=== PATIENT | male | born 1955 | race Caucasian/White ===

== ENCOUNTER 2017-11-07 12:50 | Emergency (ER) | payer OTHER ==
[~2017-11-07] VITALS: Ht 185.4 cm; Wt 112.6 kg
[~2017-11-07 12:50] MED LIST: ATENOLOL100 MG PO; CLONAZEPAM0.5 MG PO; DICLOFENAC SODI75 MG PO; FLEXERIL10 MG PO; FLUOXETINE HCL10 MG PO; FLUOXETINE HCL20 MG PO; LANSOPRAZOLE30 MG PO; LEVOTHYROXINE150 MCG PO; MEDROL DOSEPAK4 MG PO; PERCOCET 5/31 TABLET PO; VALSARTAN-HCTZ1 EAC1 PO; VITAMIN D34000 UNIT PO; VOLTAREN75 MG PO
[2017-11-07 14:45] LABS: HEMATOCRIT 44.2 % (38.0-50.0); MCH 29.6 PG (29.0-34.0); MCHC 36.2 G/DL (30.0-36.0); MCV 81.9 FL (86-99); MEAN PLAT.VOLUME 9.7 uM^3 (9.0-12.4); PLATELET COUNT 189 K/uL (156-360); RBC DIS.WIDTH-CV 12.8 % (11.8-14.6); WHITE BLOOD COUNT 7.4 K/uL (4.1-10.2)
[2017-11-07 15:06] LABS: TROP-I INTERPRETATION NEGATIVE; TROPONIN-I < 0.01 ng/mL (0.0-0.30)
[2017-11-07 15:15] LABS: ANION GAP 9 MEQ/L (2-14); CHLORIDE 107 MEQ/L (99-109); POTASSIUM 3.7 MEQ/L (3.7-5.4); SAMPLE HEMOLYSIS CHECK 0; SAMPLE ICTERIC CHECK 0; SAMPLE LIPEMIA CHECK 0; SODIUM 139 MEQ/L (136-147)
[2017-11-07 15:20] LABS: GFR ESTIMATE (CALCULATED) > 59 mL/min/ (58.99-99999); GLUCOSE 97 mg/dL (70-99); UREA NITROGEN (BUN) 17 mg/dL (9-23)
[2017-11-07] MEDS ORDERED: PREDNISONE20 MG PO (15:26)
[2017-11-07] MEDS ORDERED: PROVENTIL HFA6.7 GM IH (15:26)
[2017-11-07 15:51] VITALS: BP 153/81
== END 2017-11-07 15:56 | disposition home or self-care (01) ==
LOC: EME 12:50
DX: J45.909 Unspecified asthma, uncomplicated (principal); I10 Essential (primary) hypertension; Z88.0 Allergy status to penicillin
CPT/HCPCS: 71020; 80048; 84484; 85027; 93005; 94640; 99281; 99284; J7512